=== PATIENT | female | born 1995 | race Caucasian/White ===

== ENCOUNTER 2016-11-01 17:24 | Emergency (ER) | payer OTHER ==
[~2016-11-01] VITALS: Ht 165.1 cm; Wt 92.8 kg
[2016-11-01 17:29] VITALS: TEMP 36.7; Ht 165.1 cm; Wt 92.8 kg
[2016-11-01] MEDS ORDERED: IBUP-1459 PO (17:50)
[2016-11-01 18:10] LABS: BASO % 0.3 %; BASO ABS # 0.02 K/uL (0-0.2); COMPLETE YES; EOS % 1.1 %; HEMATOCRIT 44.1 % (37-47); IG% 0.1 %; LYMPH % 21.5 %; MEAN CELL VOLUME 88.9 fL (80-100); MEAN CORPUSCULAR HEMOGLOBIN 30.2 pg (25-34); MEAN PLATELET VOLUME 10.1 fL (7.4-10.4); MONO % 11.4 %; NEUT % 65.6 %; PLATELET COUNT 310 K/uL (130-400); RED BLOOD COUNT 4.96 M/uL (4.2-5.4); WHITE BLOOD COUNT 7.89 K/uL (4.8-10.8)
[2016-11-01 18:22] LABS: URINE APPEARANCE CLOUDY (CLEAR); URINE BILIRUBIN NEG (NEG); URINE COLOR YELLOW; URINE EPITHELIAL CELL AUTO >30 /lpf (0-5); URINE NITRITE POS (NEG); URINE PH 6.5 (4.5-7.5); URINE SPECIFIC GRAVITY 1.016 (1.000-1.030); UROBILINOGEN NEG (NEG)
[2016-11-01 18:31] LABS: MANUAL MICROSCOPIC REQUIRED? NO; REVIEW REQ? YES
[2016-11-01 18:34] LABS: PREG INTERNAL NEGATIVE QC NEG CLEAR BACKGROUND; PREG INTERNAL POSITIVE QC POS CONTROL LINE
[2016-11-01 18:39] LABS: BUN/CREATININE RATIO 10.1 (10-20); CALCIUM 9.1 mg/dl (8.5-10.1); CREATININE 0.75 mg/dl (0.60-1.20); POTASSIUM 3.8 mmol/L (3.5-5.1)
--- NOTE | 2016-11-01 19:17 | DIAGNOSTIC IMAGING REPORT ---
CT SCAN OF THE ABDOMEN AND PELVIS WITHOUT IV CONTRAST CLINICAL HISTORY: Right-sided back pain. COMPARISON STUDY: No priors. TECHNIQUE: CT scan of the abdomen and pelvis is performed from the lung bases to the proximal femora. Images are reviewed in the axial, sagittal, and coronal planes. IV contrast was not administered for this examination as per the referring clinician. Automated dose control exposure was utilized. The examination is degraded by large body habitus. CT DOSE: 1774.28 mGy.cm FINDINGS: Lung bases: The heart is normal in size and without pericardial effusion. The lung bases are clear. Liver: The unenhanced liver is normal in size, contour, and attenuation. There is no intrahepatic biliary ductal dilatation. Gallbladder: Unremarkable. Spleen: Normal in size and attenuation. Pancreas: Unremarkable. Adrenal glands: Unremarkable. Kidneys: The unenhanced kidneys are normal in size and without hydronephrosis. There are no renal calculi identified. There is no evidence of contour deforming renal mass lesion. There is mild right sided periureteric stranding, as well as minimal stranding around the right renal pelvis. Abdominal vasculature: The abdominal aorta is normal in course and caliber. Bowel: The small bowel and colon are normal in course and caliber. The appendix is well-visualized and normal. Peritoneum: There is no intraperitoneal free air or abdominal ascites. There is a small fat-containing umbilical hernia. Lymphadenopathy: None. Pelvic viscera: The bladder and uterus are normal as visualized. A 3.8 cm cyst is incidentally noted in the left ovary. Additional follicles are identified. Skeletal structures: No lytic or blastic lesions are seen. IMPRESSION: 1. No renal calculi are identified and there is no hydronephrosis. 2. There is minimal right-sided periureteric stranding, as well as minimal stranding around the right renal pelvis. This is nonspecific and may represent the sequelae of a recently passed kidney stone or possibly ascending urinary tract infection. Correlation with clinical findings and urinalysis will be required. 3. A 3.8 cm cyst is incidentally noted in the left ovary Electronically signed by: Robin Morillo M.D. 11/01/2016 7:15 PM Dictated Date/Time: 11/01/2016 7:10 PM
[2016-11-01] MEDS ORDERED: CIPROFLOXACIN 400MG / 200ML D5W IV STA (19:20)
--- NOTE | 2016-11-01 19:48 | DIAGNOSTIC IMAGING REPORT ---
CT SCAN OF THE LUMBAR SPINE WITHOUT IV CONTRAST CLINICAL HISTORY: Back pain. COMPARISON STUDY: Abdominal CT performed concurrently on 11/01/2016. TECHNIQUE: CT scan of the lumbar spine is performed from the lower thoracic spine to the sacrum. Images were reviewed in the axial, sagittal, and coronal planes. IV contrast was not administered for this examination. FINDINGS: The skeletal structures are well mineralized. There is no evidence of fracture or malalignment. Vertebral body height and alignment are maintained. There is no spondylolysis. The transverse and spinous processes are intact. No lytic or blastic lesions are seen. The intervertebral disc spaces are maintained. There is no evidence of disc herniation and the central canal is clear as visualized. The visualized sacrum and bony pelvis appear intact. The paraspinous soft tissues are normal as imaged. A 3.8 cm cyst is incidentally noted in the left ovary. IMPRESSION: Unremarkable CT scan of the lumbar spine. Dictated: 11/01/2016 7:18 PM Transcribed: 11/01/2016 7:48 PM [email or web address] Electronically signed by: Robin Morillo M.D. 11/01/2016 7:54 PM Dictated Date/Time: 11/01/2016 7:18 PM
[2016-11-01] MEDS ORDERED: CIPR-255 PO (20:28)
[2016-11-01 20:43] VITALS: BP 108/68; PULSE 89; O2SAT 98
--- NOTE | 2016-11-01 21:45 | EMERGENCY ROOM VISIT NOTE ---
History Report prepared by Frankiibjimmy: Barbara Miller Under the Supervision of: Dr. Jamie Reese M.D. First contact with patient: 17:33 Chief Complaint: BACK PAIN Stated Complaint: LOWER BACK PAIN ON RT SIDE WITH NAUSEA AND VOMITIN History of Present Illness The patient is a 21 year old female who presents to the Emergency Room with complaints of intermittent right sided low back pain for the past 3 to 4 days. She rates her discomfort as an 8/10 in severity. The pain does not radiate into her abdomen or down her legs. She notes when she experiences the pain, she becomes very nauseous, and earlier today she vomited. Nothing seems to make the pain better or worse and movement does not worsen her discomfort. The patient admits she has been going to the gym more often recently, but states "it doesn' t feel like a pulled muscle". The first time she experienced the pain, it lasted for "a few hours" and she took Ibuprofen, which provided good relief, and she was able to sleep. She denies any fevers, hematuria, dysuria or abnormal vaginal discharge or bleeding. Her LMP was about 2 weeks ago and normal. She notes there is a chance she is . Her last bowel movement was yesterday and normal. The patient denies any family history of kidney stones. Source of History: patient Onset: 3 to 4 days [employer] Position: back (right lower back) Symptom Intensity: Timing: intermittent Modifying Factors (Relieving): ibuprofen Associated Symptoms: + nausea, + vomiting, No urinary symptoms Review of Systems See HPI for pertinent positives & negatives. A total of 10 systems reviewed and were otherwise negative. Past Medical & Surgical Medical Problems: (1) History of bronchitis (2) History of bronchitis Family History Cancer Social History Smoking Status: Current Every Day Smoker Alcohol Use: occasionally Drug Use: none Marital Status: single Housing Status: lives with roommate Occupation Status: [employer] student Current/Historical Medications Scheduled Ciprofloxacin Hcl (Cipro), 500 MG PO BID Scheduled PRN Ibuprofen (Motrin), 400 MG PO Q6H PRN for Pain Allergies Coded Allergies: No Known Allergies (Unverified , 11/01/16) Physical Exam Vital Signs Date Time Temp Pulse Resp B/P Pulse Ox O2 Delivery O2 Flow Rate FiO2 11/01/16 20:43 89 20 108/68 98 11/01/16 19:32 94 18 106/71 98 Room Air 11/01/16 18:41 89 16 101/63 97 Room Air 11/01/16 17:29 36.7 115 20 138/86 97 Room Air Physical Exam Constitutional: Vital signs reviewed. Eyes: Pupils are equal round reactive to light. Conjunctiva are noninjected. ENT: Pharynx is clear without erythema or exudate. Mucous membranes are moist. Neck supple without meningeal signs. Respiratory: Clear to auscultation bilaterally. Breath sounds are equal bilaterally. Cardiovascular: Regular rate and rhythm. No rubs or gallops. GI: Soft, nondistended and nontender. Bowel sounds are present. Musculoskeletal: Mild right SI joint tenderness. Negative straight leg raise bilaterally. No peripheral edema. No CVA tenderness. Integumentary: No cyanosis. Neurological: The patient is awake and alert. No focal deficits. Motor and sensation intact in lower extremities. Psychiatric: Normal affect. Medical Decision & Procedures ER Provider Diagnostic Interpretation: These CT scans were reviewed and interpreted by the radiologist and reviewed by myself. CT SCAN OF THE ABDOMEN AND PELVIS WITHOUT IV CONTRAST CLINICAL HISTORY: Right-sided back pain. COMPARISON STUDY: No priors. TECHNIQUE: CT scan of the abdomen and pelvis is performed from the lung bases to the proximal femora. Images are reviewed in the axial, sagittal, and coronal planes. IV contrast was not administered for this examination as per the referring clinician. Automated dose control exposure was utilized. The examination is degraded by large body habitus. CT DOSE: 1774.28 mGy.cm FINDINGS: Lung bases: The heart is normal in size and without pericardial effusion. The lung bases are clear. Liver: The unenhanced liver is normal in size, contour, and attenuation. There is no intrahepatic biliary ductal dilatation. Gallbladder: Unremarkable. Spleen: Normal in size and attenuation. Pancreas: Unremarkable. Adrenal glands: Unremarkable. Kidneys: The unenhanced kidneys are normal in size and without hydronephrosis. There are no renal calculi identified. There is no evidence of contour deforming renal mass lesion. There is mild right sided periureteric stranding, as well as minimal stranding around the right renal pelvis. Abdominal vasculature: The abdominal aorta is normal in course and caliber. Bowel: The small bowel and colon are normal in course and caliber. The appendix is well-visualized and normal. Peritoneum: There is no intraperitoneal free air or abdominal ascites. There is a small fat-containing umbilical hernia. Lymphadenopathy: None. Pelvic viscera: The bladder and uterus are normal as visualized. A 3.8 cm cyst is incidentally noted in the left ovary. Additional follicles are identified. Skeletal structures: No lytic or blastic lesions are seen. IMPRESSION: 1. No renal calculi are identified and there is no hydronephrosis. 2. There is minimal right-sided periureteric stranding, as well as minimal stranding around the right renal pelvis. This is nonspecific and may represent the sequelae of a recently passed kidney stone or possibly ascending urinary tract infection. Correlation with clinical findings and urinalysis will be required. 3. A 3.8 cm cyst is incidentally noted in the left ovary Electronically signed by: Robin Morillo M.D. 11/01/2016 7:[address] SCAN OF THE LUMBAR SPINE WITHOUT IV CONTRAST CLINICAL HISTORY: Back pain. COMPARISON STUDY: Abdominal CT performed concurrently on 11/01/2016. TECHNIQUE: CT scan of the lumbar spine is performed from the lower thoracic spine to the sacrum. Images were reviewed in the axial, sagittal, and coronal planes. IV contrast was not administered for this examination. FINDINGS: The skeletal structures are well mineralized. There is no evidence of fracture or malalignment. Vertebral body height and alignment are maintained. There is no spondylolysis. The transverse and spinous processes are intact. No lytic or blastic lesions are seen. The intervertebral disc spaces are maintained. There is no evidence of disc herniation and the central canal is clear as visualized. The visualized sacrum and bony pelvis appear intact. The paraspinous soft tissues are normal as imaged. A 3.8 cm cyst is incidentally noted in the left ovary. IMPRESSION: Unremarkable CT scan of the lumbar spine. Dictated: 11/01/2016 7:18 PM Transcribed: 11/01/2016 7:48 PM [email or web address] Electronically signed by: Robin Morillo M.D. 11/01/2016 7:54 PM Laboratory Results 11/01/16 18:00 Red Blood Count 4.96, Mean Corpuscular Volume 88.9, Mean Corpuscular Hemoglobin 30.2, Mean Corpuscular Hemoglobin Concent 34.0, Mean Platelet Volume 10.1, Neutrophils (%) (Auto) 65.6, Lymphocytes (%) (Auto) 21.5, Monocytes (%) (Auto) 11.4, Eosinophils (%) (Auto) 1.1, Basophils (%) (Auto) 0.3, Neutrophils # (Auto ) 5.17, Lymphocytes # (Auto) 1.70, Monocytes # (Auto) 0.90, Eosinophils # (Auto ) 0.09, Basophils # (Auto) 0.02 11/01/16 18:00 Test 11/01/16 18:00 White Blood Count 7.89 K/uL (4.8-10.8) Red Blood Count 4.96 M/uL (4.2-5.4) Hemoglobin 15.0 g/dL (12.0-16.0) Hematocrit 44.1 % (37-47) Mean Corpuscular Volume 88.9 fL (80-100) Mean Corpuscular Hemoglobin 30.2 pg (25-34) Mean Corpuscular Hemoglobin Concent 34.0 g/dl (32-36) Platelet Count 310 K/uL (130-400) Mean Platelet Volume 10.1 fL (7.4-10.4) Neutrophils (%) (Auto) 65.6 % Lymphocytes (%) (Auto) 21.5 % Monocytes (%) (Auto) 11.4 % Eosinophils (%) (Auto) 1.1 % Basophils (%) (Auto) 0.3 % Neutrophils # (Auto) 5.17 K/uL (1.4-6.5) Lymphocytes # (Auto) 1.70 K/uL (1.2-3.4) Monocytes # (Auto) 0.90 K/uL (0.11-0.59) Eosinophils # (Auto) 0.09 K/uL (0-0.5) Basophils # (Auto) 0.02 K/uL (0-0.2) RDW Standard Deviation 43.1 fL (36.4-46.3) RDW Coefficient of Variation 13.3 % (11.5-14.5) Immature Granulocyte % (Auto) 0.1 % Immature Granulocyte # (Auto) 0.01 K/uL (0.00-0.02) Urine Color YELLOW Urine Appearance CLOUDY (CLEAR) Urine pH 6.5 (4.5-7.5) Urine Specific Zullinger 1.016 (1.000-1.030) Urine Protein NEG (NEG) Urine Glucose (UA) NEG (NEG) Urine Ketones TRACE (NEG) Urine Occult Blood TRACE (NEG) Urine Nitrite POS (NEG) Urine Bilirubin NEG (NEG) Urine Urobilinogen NEG (NEG) Urine Leukocyte Esterase MODERATE (NEG) Urine WBC (Auto) >30 /hpf (0-5) Urine RBC (Auto) 0-4 /hpf (0-4) Urine Hyaline Casts (Auto) 1-5 /lpf (0-5) Urine Epithelial Cells (Auto) >30 /lpf (0-5) Urine Bacteria (Auto) 4+ (NEG) Urine Pathogenic Casts /lpf (0) Urine Test NEG (NEG) Anion Gap 11.0 mmol/L (3-11) Est Creatinine Clear Calc Drug Dose 132.5 ml/min Estimated GFR () 131.1 Estimated GFR (Non- 113.1 BUN/Creatinine Ratio 10.1 (10-20) Calcium Level 9.1 mg/dl (8.5-10.1) Total Bilirubin 0.4 mg/dl (0.2-1) Direct Bilirubin 0.1 mg/dl (0-0.2) Aspartate Amino Transf (AST/SGOT) 8 U/L (15-37) Alanine Aminotransferase (ALT/SGPT) 16 U/L (12-78) Alkaline Phosphatase 93 U/L (45-117) Total Protein 7.9 gm/dl (6.4-8.2) Albumin 3.6 gm/dl (3.4-5.0) Lipase 132 U/L (73-393) Human Chorionic Gonadotropin, Qual NEG (NEG) Laboratory results as reviewed by me. Medications Administered Medications (Trade) Dose Ordered Sig/Vikki Route Start Time Stop Time Status Last Admin Dose Admin Ciprofloxacin/ Dextrose (Cipro / D5w) 400 mg NOW STAT IV 11/01/16 19:20 11/01/16 19:22 DC 11/01/16 19:31 400 MG ED Course 173: The patient was evaluated in room C9. A complete history and physical exam was performed. 1919: I reevaluated the patient. I discussed her rest results and she declined any pain medication. I also discussed her discharge instructions and she verbalized complete understanding and agreement. 0: Cipro 400 mg IV. 2030: I reevaluated the patient. She is feeling better but does complain of some mild back pain. I discussed her results and discharge instructions and she verbalized complete understanding and agreement. Medical Decision This is a 21-year-old female who presents with right lower back pain and vomiting. Differential diagnosis includes kidney stone, UTI, pyelonephritis, retrocecal appendicitis, ovarian cyst, sacroiliitis, pathologic fracture. I did perform a limited focused review of portions of the patient's old chart on the electronic medical record. The patient has had no prior visits to this hospital. I did evaluate the patient as noted above. The patient is presenting with right lower back pain which does not radiate into her abdomen or down her legs. She states it is not worse with movement or change in position. She does have some mild tenderness to that area but states the pain feels deeper inside. IV access was established. The patient declined any pain medication. I did order and personally review the patient's urine analysis as described above. She does have evidence of infection. A urine culture was sent. Urine test is negative. I did order and review the patient's blood work as noted in the electronic medical record. Her white blood cell count is not elevated. I did order a CT of the abdomen and pelvis and lumbosacral spine. I did review the images myself as well as the radiology report as described above. The patient appears to have signs of a UTI. Her symptoms therefore likely secondary to an early pyelonephritis. I did discuss this with the patient. She was given Cipro IV. She did not wish to have any pain medications to go home with. She was discharged with a prescription for 10 days of Cipro and will follow up with her doctor or [facility]. She was given return instructions as outlined below. Impression Primary Impression: Pyelonephritis Scribe Attestation The scribe's documentation has been prepared under my direct and personally reviewed by me in its entirety. I confirm that the note above accurately reflects all work, treatment, procedures, and medical decision making performed by me. Departure Information Dispostion Home / Self-Care Prescriptions Ciprofloxacin Hcl (CIPRO) 500 Mg Tab 500 MG PO BID, #19 TAB Prov: Jamie Reese M.D. 11/01/16 Referrals No Doctor, Assigned (PCP) Patient Instructions My [facility], Pyelonephritis Dc Additional Instructions You have been examined and treated today on an emergency basis only. This is not a substitute for, or an effort to provide, complete comprehensive medical care. It is impossible to recognize and treat all injuries or illnesses in a single emergency department visit. It is therefore important that you follow up closely with your physician. Call as soon as possible for an appointment. Return for worsening symptoms or if you develop fever, vomiting, or any other concerning symptoms.
== END 2016-11-01 20:45 | disposition home or self-care (01) ==
LOC: C.EDB 17:26 → C.EDC 20:45
DX: N12 Tubulo-interstitial nephritis, not specified as acute or chronic (principal); F17.200 Nicotine dependence, unspecified, uncomplicated; Z86.19 Personal history of other infectious and parasitic diseases; Z80.9 Family history of malignant neoplasm, unspecified